=== PATIENT | male | born 1945 | race Caucasian/White ===

== ENCOUNTER 2017-04-21 06:44 | Day surgery (SDC) | payer MEDICARE, BC ==
[~2017-04-21] VITALS: Ht 172.7 cm; Wt 68.8 kg
[2017-04-21] MEDS ORDERED: LIPITOR20 MG PO (07:09)
[2017-04-21] MEDS ORDERED: CENTRUM SILVER1 CTB PO (07:09)
[2017-04-21] MEDS ORDERED: MASON NATURAL1200 MG PO (07:10)
[2017-04-21] MEDS ORDERED: FLAX OIL1000 MG PO (07:10)
[2017-04-21] MEDS ORDERED: TYLENOL 325MG325 MG PO (07:11)
[2017-04-21] MEDS ORDERED: ASPIRIN 81M81 MG/TA2 PO (07:11)
[2017-04-21 07:31] VITALS: BP 147/67; PULSE 52; TEMP 97.3
[2017-04-21] MEDS ORDERED: MOTRIN 600600 MG/TAB PO (10:48)
[2017-04-21] MEDS ORDERED: COLACE 100100 MG/CAP PO (10:48)
[2017-04-21] MEDS ORDERED: NORCO 325 MG-51 TAB PO (10:48)
[2017-04-21 10:55] VITALS: BP 142/51; PULSE 56; TEMP 97.2
[2017-04-21 11:10] VITALS: BP 137/64; PULSE 52
[2017-04-21 11:25] VITALS: BP 139/54; PULSE 50
[2017-04-21 11:40] VITALS: BP 139/56; PULSE 51
== END 2017-04-21 12:05 | disposition home or self-care (01) ==
LOC: SDCO 06:44
DX: K40.20 Bilateral inguinal hernia, without obstruction or gangrene, not specified as recurrent (principal); M19.90 Unspecified osteoarthritis, unspecified site; I25.10 Atherosclerotic heart disease of native coronary artery without angina pectoris; E78.00 Pure hypercholesterolemia, unspecified; Z95.1 Presence of aortocoronary bypass graft
CPT/HCPCS: A4314; C1781; J0690; J1100; J1885; J2405; J2704; J2710; J3010; J7120